=== PATIENT | male | born 1965 | race Caucasian/White ===

== ENCOUNTER → 2023-07-06 20:34 | Outpatient (CLI) | payer BC, SELFPAY | PROVIDERS: Visit Provider Nurse Practitioner Family | DX: L60.0 Ingrowing nail (principal); M79.674 Pain in right toe(s); B35.1 Tinea unguium | CPT/HCPCS: 87220 ==

== ENCOUNTER → 2023-07-14 12:58 | Outpatient (CLI) | payer BC, SELFPAY ==
--- NOTE | 2023-07-14 13:06 | US_ITS ---
FINAL REPORT CLINICAL HISTORY: Decreased pulses in lower extremities,HTN,CLAUDICATION,TROPHIC NAILS FINDINGS: COMPLETE ANKLE/BRACHIAL INDICES BILATERAL Complete ankle brachial indices were obtained. The right FREYA is 1.1. The left FREYA is 1.2. IMPRESSION: ABIs are within normal limits bilaterally. Reviewed, Interpreted and Dictated by Boston Santacruz III, MD Transcribed by Kiersten Clifford Authenticated and . [facility]
== END ==
PROVIDERS: Visit Provider Nurse Practitioner Family
DX: R09.89 Other specified symptoms and signs involving the circulatory and respiratory systems (principal)
CPT/HCPCS: 93923